=== PATIENT | female | born 1990 | race Caucasian/White ===

== ENCOUNTER 2016-12-30 12:11 | Emergency (ER) | payer OTHER ==
--- NOTE | 2016-12-30 13:56 | ED CLINICAL REPORT ---
Clinical Report - Physicians/Mid Levels [facility] [address] [place] [address] 12/30/2016 12:13 Patient: PETER VARMA Time Seen: 12:33 Dec 30 2016. Arrived- By private vehicle. Historian- patient. HISTORY OF PRESENT ILLNESS Chief Complaint: Fatigue, diarrhea. This started just prior to arrival and is still present. The patient has had fatigue and weakness. (Over the last 5 days patient reports diarrhea and nausea, decreased appetite. Reports mild cough. Denies fevers or chills. Denies any sick contacts. Last nausea period was about 2 weeks ago. Patient with IUD, has irregular menses.). REVIEW OF SYSTEMS No fever, sore throat, difficulty breathing, chest pain or nausea. No diarrhea, skin rash, back pain, headache or blackouts. No double vision. No difficulty with ambulation. All systems otherwise negative, except as recorded above. PAST HISTORY Problems: None. Additional Surgeries: None. Medications: None. Allergies: No Known Drug Allergy. SOCIAL HISTORY Current every day smoker. Alcohol use. History of drug use: marijuana. PHYSICAL EXAM Appearance: Alert. No acute distress. No apparent distress. ENT: Nose normal. Pharynx normal. CVS: Normal heart rate and rhythm. Pulses normal. Respiratory: No respiratory distress. Breath sounds normal. No accessory muscle use. Skin: Skin warm. Normal skin color. Neuro: Oriented X 3. LABS, X-RAYS, AND EKG Laboratory Tests: UA-Culture if indicated: (SHANE: 12/30/2016 10:40) ( MsgRcvd 12/30/2016 12:59) Final results Test Result Flag Units (Reference) URINE COLOR YELLOW URINE APPEARANCE CLEAR URINE GLUCOSE NEGATIVE (NEGATIVE) URINE BILIRUBIN NEGATIVE (NEGATIVE) URINE KETONE NEGATIVE (NEGATIVE) URINE SPECIFIC GRAVITY 1.010 (1.010-1.030) URINE PH 6.0 (5.0-8.0) URINE PROTEIN NEGATIVE (NEGATIVE) URINE UROBILINOGEN 0.2 EU/dL (0.2-1.0) URINE NITRITE NEGATIVE (NEGATIVE) URINE BLOOD TRACE-INTACT (NEGATIVE) URINE LEUK ESTERASE NEGATIVE (NEGATIVE) URINE RBC NONE SEEN rbc/hpf (0-1) URINE WBC NONE SEEN wbc/hpf (0-1) URINE EPITHELIAL CELLS RARE EPI/hpf (0-5) URINE BACTERIA NONE SEEN (NONE SEEN) URINE COMMENT CULT NOT INDICATED URINE CULTURES ARE SET-UP BASED ON THE FOLLOWING CRITERIA:POSITIVE NITRITEPOSITIVE LEUKOCYTE ESTERASEGREATER THAN 10 WHITE BLOOD CELLSMODERATE (2+) OR GREATER BACTERIA Urine: (SHANE: 12/30/2016 12:40) ( [facility] 12/30/2016 13:27) Final results Test Result Flag Units (Reference) URINE NEGATIVE CBC w Diff: (SHANE: 12/30/2016 13:05) ( [facility] 12/30/2016 13:18) Final results Test Result Flag Units (Reference) WHITE BLOOD COUNT 5.9 K/uL (4.5-11.5) RED BLOOD COUNT 5.08 M/uL (4.00-5.20) HEMOGLOBIN 15.1 gm/dL (12.0-16.0) HEMATOCRIT 45.3 % (36.0-46.0) MEAN CELL VOLUME 89 fL (80-100) MEAN CORPUSCULAR HGB 30 pg (26-34) MEAN CORPUSCULAR HGB CONC 33 g/dL (31-37) RED CELL DISTRIBUTION WIDTH 12.7 % (11.6-14.8) PLATELET COUNT 293 K/uL (150-400) NEUTROPHIL % 60.0 % (50-75) LYMPH % 25.9 % (25-40) MONO % 13.2 % (3-14) EOSINOPHIL % 0.5 % (0-4) BASOPHIL % 0.4 % (0-2) CMP: (SHANE: 12/30/2016 13:05) ( [facility] 12/30/2016 13:53) Final results Test Result Flag Units (Reference) GLUCOSE 85 mg/dL (70-110) BUN 9 mg/dL (7-18) CREATININE 0.6 mg/dL (0.6-1.3) Estimated GFR >60 mL/min Estimated GFR- >60 mL/min Note: Persistent reduction over 3 months in eGFR<60 mL/min/1.73 m2 defines CKD. Patients with eGFR values>=60 mL/min/1.73 m2 may also have CKD if evidence ofpersistent proteinuria. Additional information may be foundat www.kidney.org. SODIUM 140 mmol/L (136-145) POTASSIUM 4.1 mmol/L (3.5-5.1) CHLORIDE 105 mmol/L (98-107) CARBON DIOXIDE 29 mmol/L (21-32) CALCIUM 9.0 mg/dL (8.5-10.1) TOTAL PROTEIN 8.1 g/dL (6.4-8.2) ALBUMIN 4.1 g/dL (3.3-5.0) BILIRUBIN, TOTAL 0.3 mg/dL (0.0-1.0) ALKALINE PHOSPHATASE 64 U/L (46-116) AST (SGOT) 20 U/L (15-37) ALT (SGPT) 26 U/L (12-78) . PROGRESS AND PROCEDURES Course of Care: Patient afebrile in no distress in the emergency department, negative exam, no obvious systemic symptoms in the ER. Negative HEENT. Lung exam negative. Labs as above and are unremarkable. Patient given IV hydration and Zofran emergency department, likely viral in nature to follow up outpatient as needed. 12/30/2016 13:52 BP: 120/69. HR: 80. RR: 14. O2 saturation: 100%. Temp: 97.8 F. Pain level now: 0/10. Patient is stable. Patient/family counseled. Disposition: Discharged. CLINICAL IMPRESSION Acute viral syndrome INSTRUCTIONS (Address: [address] [place] [address] [place] [address] ). Prescription Medications: Zofran (orally disintegrating tablets) 4 mg: take 1 orally every 6 hours as needed for nausea. Dispense ten (10). Follow-up: Follow up with your doctor in three days. (Electronically signed by Tracy Tang P.A.-C 12/30/2016 14:03)
--- NOTE | 2016-12-30 13:56 | ED NURSING NOTES ---
Clinical Report - Nurses [facility] [place] [address] [address] [place] [address] 12/30/2016 12:13 [id number] Triage time 12:27 Dec 30 2016. Acuity: LEVEL 3. Chief Complaint: BODY ACHES and FATIGUE. 12:33 12/30/16. ( Pt states she feels tired and "dehydrated." Pt states she threw up last Saturday, and nauseous throughout the week. Pt reports diarrhea approx 5x/day for the last 4 days. Pt reports eating 1x a day but no change in drinking fluids.). SEPSIS SCREEN: Sepsis Screen: negative. Negative (no infection suspected/documented). [place] COMA SCORE: [place] Coma Scale: 15- eyes open spontaneously (4); best verbal response- oriented x 4 (5); best motor response- obeys commands (6). --12:33 AliM 12:23 12/30/16. BP: 121/75 taken on the left arm, while sitting. HR: 86. RR: 14 (regular and unlabored). O2 saturation: 100% on room air. Temp: 97.7 F. Pain level now: 0/10. --12:33 AliM. Weight: 53 kg stated. Height/Length: 64 inches. BMI: 20.1. --12:31 AliM. Medications None. --12:29 AliM. Allergies No Known Drug Allergy. --12:29 AliM. History Arrived by private vehicle. Historian: patient. Primary physician (None). Onset. (Dec 25 2016). She has had fatigue, a headache and diarrhea. No chills or abdominal pain. Treatment [employer]: (Pepto 10:00 today. Motrin yesterday). PAST MEDICAL HX: Immunizations: up-to-date. Last normal menstrual period was 2 weeks ago- 2 weeks ago. SOCIAL HX: Light tobacco smoker. Occasional alcohol use. History of occasional drug use: marijuana. No infectious disease exposure. No known contact with a sick individual. ABUSE ASSESSMENT: No report of abuse. FALL RISK ASSESSMENT: Fall risk assessment completed. No fall risk identified. NUTRITIONAL RISK ASSESSMENT: The nutritional risk assessment revealed no deficiencies. FUNCTIONAL ASSESSMENT: Functional assessment: no impairments noted. LEARNING NEEDS ASSESSMENT: The learning needs assessment revealed no barriers. SKIN INTEGRITY ASSESSMENT: Skin integrity risk assessment completed. No skin integrity risk identified. --12:33 AliM. PROBLEMS: None. --12:30 AliM. ADDITIONAL SURGERIES: None. --12:30 AliM. Interventions ID band on patient. To treatment room. --12:33 AliM. PHYSICAL ASSESSMENT Ambulatory to room. GENERAL / NEURO / PSYCH: Alert. Oriented X 4. Appears in no acute distress. HEENT: Mucous membranes are pink. RESPIRATORY: Respirations not labored. Chest nontender. Breath sounds within normal limits. CVS: Capillary refill less than 2 seconds. GI / : Abdomen soft and nontender and normal bowel sounds. SKIN: Skin intact. Skin is warm and dry. Normal skin turgor. --12:34 AliM. NURSING PROGRESS NOTES 12:35 12/30/16. Patient gowned. Head of bed elevated. Reassurance given. Two patient identifiers checked. Call light placed in reach. Side rails up x 1. Bed placed in lowest position. Brakes of bed on. Patient ready for evaluation- chart flagged and ED physician notified. --12:35 AliM 12:59 12/30/2016 Site #1 started via IV in the right antecubital space with an 20g angiocath, with aseptic technique and good blood return; one attempt. Blood drawn: rainbow set. Labeled in the presence of the patient and sent to the lab. Saline lock flushed with 10 mL saline. --13:09 AliM 13:01 12/30/2016 Started bag #1 1000 mL IV Fluids IV NS (Saline); at 999 mL/hr over 1 hour(s) via site #1 via IV pump. Allergies verified and confirmed 5 rights. IV patency established. IV site checked: no pain, redness, or swelling. IV flushed thoroughly pre- and post-medication administration. --13:12 AliM 13:02 12/30/2016 Zofran (Ondansetron HCl) IVP 8 mg given over 2 minute(s) via site #1. Allergies verified and confirmed 5 rights. IV patency established. IV site checked: no pain, redness, or swelling. IV flushed thoroughly pre- and post-medication administration. --13:12 AliM 12:40. Patient ID band checked for patient name and birthdate: patient confirmed. Instructions provided to collect clean catch urine and patient verbalized understanding. Clean catch urine collected with return of yellow-colored clear urine; odor is normal; sample sent to lab for urinalysis and culture. Specimen labeled in the presence of the patient. --13:13 Livan Cagle R.N. 13:54 12/30/16. Reassurance given. Reassessment after fluids administered. She reports no complaints, she is calm and she has had no adverse reaction. Overall patient status is the same- she states feels the same. Call light placed in reach. Side rails up x 1. Bed placed in lowest position. Brakes of bed on. --13:54 AliM 13:52 12/30/16. BP: 120/69 taken on the left arm, manually, while lying. HR: 80. RR: 14 (regular and unlabored). O2 saturation: 100% on room air. Temp: 97.8 F (oral). Pain level now: 0/10. --13:54 AliM. DISPOSITION / DISCHARGE 13:25 12/30/2016 Zofran IVP Response: pain is improving. Symptoms have improved the patient feels better. --14:26 AliM 14:01 12/30/2016 IV Fluids IV NS Discontinued: bag #1 infused upon discharge. Total amount infused: 1000 mL. IV patency established. IV site checked: no pain, redness, or swelling. IV flushed thoroughly. --14:25 AliM 14:19 12/30/2016 Site #1 removed upon discharge. Catheter intact. Manual pressure and bandage applied. --14:24 AliM 14:27 12/30/16. Condition at departure: improved and stable. ( Pt states she feels "a little better."). No learning barriers present. Discharge instructions provided and reviewed with the patient. Reviewed medication(s) side effects, precautions, dosing and course information. Prescription(s) given to the patient. Treatments reviewed. Patient verbalized understanding. Written instructions provided in Kenyan. ( Taught pt to take Tylenol/Ibuprofen as needed, drink fluids as tolerated, rest.). The patient was discharged home and accompanied by parent. She left the Emergency Department ambulatory and via private vehicle. Patient driving. FALL RISK ASSESSMENT: Fall risk assessment completed. No fall risk identified. --14:27 Reginald 14:22 12/30/16. BP: 115/65 taken on the left arm, manually, while lying. HR: 77. RR: 14 (regular and unlabored). O2 saturation: 99% on room air. Temp: 98.2 F (oral). Pain level now: 0/10. --14:27 Reginald Departure time: 14:Dec 30 2016. --14:27 Reginald. Locked/Released at 12/30/2016 15:31 by Reginald,
--- NOTE | 2016-12-30 13:56 | ED CLINICAL REPORT ---
Clinical Report - Physicians/Mid Levels [facility] [address] [place] [address] 12/30/2016 12:13 Patient: PETER VARMA Time Seen: 12:33 Dec 30 2016. Arrived- By private vehicle. Historian- patient. HISTORY OF PRESENT ILLNESS Chief Complaint: Fatigue, diarrhea. This started just prior to arrival and is still present. The patient has had fatigue and weakness. (Over the last 5 days patient reports diarrhea and nausea, decreased appetite. Reports mild cough. Denies fevers or chills. Denies any sick contacts. Last nausea period was about 2 weeks ago. Patient with IUD, has irregular menses.). REVIEW OF SYSTEMS No fever, sore throat, difficulty breathing, chest pain or nausea. No diarrhea, skin rash, back pain, headache or blackouts. No double vision. No difficulty with ambulation. All systems otherwise negative, except as recorded above. PAST HISTORY Problems: None. Additional Surgeries: None. Medications: None. Allergies: No Known Drug Allergy. SOCIAL HISTORY Current every day smoker. Alcohol use. History of drug use: marijuana. PHYSICAL EXAM Appearance: Alert. No acute distress. No apparent distress. ENT: Nose normal. Pharynx normal. CVS: Normal heart rate and rhythm. Pulses normal. Respiratory: No respiratory distress. Breath sounds normal. No accessory muscle use. Skin: Skin warm. Normal skin color. Neuro: Oriented X 3. LABS, X-RAYS, AND EKG Laboratory Tests: UA-Culture if indicated: (SHANE: 12/30/2016 10:40) ( MsgRcvd 12/30/2016 12:59) Final results Test Result Flag Units (Reference) URINE COLOR YELLOW URINE APPEARANCE CLEAR URINE GLUCOSE NEGATIVE (NEGATIVE) URINE BILIRUBIN NEGATIVE (NEGATIVE) URINE KETONE NEGATIVE (NEGATIVE) URINE SPECIFIC GRAVITY 1.010 (1.010-1.030) URINE PH 6.0 (5.0-8.0) URINE PROTEIN NEGATIVE (NEGATIVE) URINE UROBILINOGEN 0.2 EU/dL (0.2-1.0) URINE NITRITE NEGATIVE (NEGATIVE) URINE BLOOD TRACE-INTACT (NEGATIVE) URINE LEUK ESTERASE NEGATIVE (NEGATIVE) URINE RBC NONE SEEN rbc/hpf (0-1) URINE WBC NONE SEEN wbc/hpf (0-1) URINE EPITHELIAL CELLS RARE EPI/hpf (0-5) URINE BACTERIA NONE SEEN (NONE SEEN) URINE COMMENT CULT NOT INDICATED URINE CULTURES ARE SET-UP BASED ON THE FOLLOWING CRITERIA:POSITIVE NITRITEPOSITIVE LEUKOCYTE ESTERASEGREATER THAN 10 WHITE BLOOD CELLSMODERATE (2+) OR GREATER BACTERIA Urine: (SHANE: 12/30/2016 12:40) ( [facility] 12/30/2016 13:27) Final results Test Result Flag Units (Reference) URINE NEGATIVE CBC w Diff: (SHANE: 12/30/2016 13:05) ( [facility] 12/30/2016 13:18) Final results Test Result Flag Units (Reference) WHITE BLOOD COUNT 5.9 K/uL (4.5-11.5) RED BLOOD COUNT 5.08 M/uL (4.00-5.20) HEMOGLOBIN 15.1 gm/dL (12.0-16.0) HEMATOCRIT 45.3 % (36.0-46.0) MEAN CELL VOLUME 89 fL (80-100) MEAN CORPUSCULAR HGB 30 pg (26-34) MEAN CORPUSCULAR HGB CONC 33 g/dL (31-37) RED CELL DISTRIBUTION WIDTH 12.7 % (11.6-14.8) PLATELET COUNT 293 K/uL (150-400) NEUTROPHIL % 60.0 % (50-75) LYMPH % 25.9 % (25-40) MONO % 13.2 % (3-14) EOSINOPHIL % 0.5 % (0-4) BASOPHIL % 0.4 % (0-2) CMP: (SHANE: 12/30/2016 13:05) ( [facility] 12/30/2016 13:53) Final results Test Result Flag Units (Reference) GLUCOSE 85 mg/dL (70-110) BUN 9 mg/dL (7-18) CREATININE 0.6 mg/dL (0.6-1.3) Estimated GFR >60 mL/min Estimated GFR- >60 mL/min Note: Persistent reduction over 3 months in eGFR<60 mL/min/1.73 m2 defines CKD. Patients with eGFR values>=60 mL/min/1.73 m2 may also have CKD if evidence ofpersistent proteinuria. Additional information may be foundat www.kidney.org. SODIUM 140 mmol/L (136-145) POTASSIUM 4.1 mmol/L (3.5-5.1) CHLORIDE 105 mmol/L (98-107) CARBON DIOXIDE 29 mmol/L (21-32) CALCIUM 9.0 mg/dL (8.5-10.1) TOTAL PROTEIN 8.1 g/dL (6.4-8.2) ALBUMIN 4.1 g/dL (3.3-5.0) BILIRUBIN, TOTAL 0.3 mg/dL (0.0-1.0) ALKALINE PHOSPHATASE 64 U/L (46-116) AST (SGOT) 20 U/L (15-37) ALT (SGPT) 26 U/L (12-78) . PROGRESS AND PROCEDURES Course of Care: Patient afebrile in no distress in the emergency department, negative exam, no obvious systemic symptoms in the ER. Negative HEENT. Lung exam negative. Labs as above and are unremarkable. Patient given IV hydration and Zofran emergency department, likely viral in nature to follow up outpatient as needed. 12/30/2016 13:52 BP: 120/69. HR: 80. RR: 14. O2 saturation: 100%. Temp: 97.8 F. Pain level now: 0/10. Patient is stable. Patient/family counseled. Disposition: Discharged. CLINICAL IMPRESSION Acute viral syndrome INSTRUCTIONS (Address: [address] [place] [address] [place] [address] ). Prescription Medications: Zofran (orally disintegrating tablets) 4 mg: take 1 orally every 6 hours as needed for nausea. Dispense ten (10). Follow-up: Follow up with your doctor in three days. (Electronically signed by Tracy Tang P.A.-C 12/30/2016 14:03)
--- NOTE | 2016-12-30 13:56 | ED ORDER SUMMARY ---
..... Patient: PETER VARMA OrderSheet [facility] VisitID: [id number] [place] [address] 26y, F Registration Date/Time: 12/30/2016 ORDER SHEET Weight: 53.0 kg (stated) Allergies: No Known Drug Allergy GENERAL ORDERS: CBC w Diff Urgent (12:44 12/30/2016 EKoroleva P.A.-C) (Ack 12:46 OSnell) (13:09 AMcKenna) CMP Urgent (12:44 12/30/2016 EKoroleva P.A.-C) (Ack 12:46 OSnell) (13:10 AMcKenna) UA-Culture if indicated Urgent (12:44 12/30/2016 EKoroleva P.A.-C) (Ack 12:47 OSnell) (13:12 AMcKenna) Urine Urgent (12:44 12/30/2016 EKoroleva P.A.-C) (Ack 12:47 OSnell) (13:12 AMcKenna) MEDICATION ORDERS: IV FLUIDS: IV NS : initial bolus 1000 mL (1000 mL/hr), then 1000 mL/hr for X1 (NOW); Edward (12:44 12/30/2016 EKoroleva P.A.-C) (Ack 12:50 AMcKenna) (13:12 AMcKenna) Zofran IV 8 mg (NOW) (12:44 12/30/2016 EKoroleva P.A.-C) (Ack 12:50 AMcKenna) (13:12 AMcKenna) ORDER SHEET NOTES: [Electronically signed by Tracy Tang P.A.-C (14:03 12/30/2016)] [Electronically signed by Lara Bliss (15:31 12/30/2016)] [Electronically locked/signed by Lara Bliss (15:31 12/30/2016)]
--- NOTE | 2016-12-30 13:56 | ED ORDER SUMMARY ---
..... Patient: PETER VARMA OrderSheet [facility] VisitID: [id number] [place] [address] 26y, F Registration Date/Time: 12/30/2016 ORDER SHEET Weight: 53.0 kg (stated) Allergies: No Known Drug Allergy GENERAL ORDERS: CBC w Diff Urgent (12:44 12/30/2016 EKoroleva P.A.-C) (Ack 12:46 OSnell) (13:09 AMcKenna) CMP Urgent (12:44 12/30/2016 EKoroleva P.A.-C) (Ack 12:46 OSnell) (13:10 AMcKenna) UA-Culture if indicated Urgent (12:44 12/30/2016 EKoroleva P.A.-C) (Ack 12:47 OSnell) (13:12 AMcKenna) Urine Urgent (12:44 12/30/2016 EKoroleva P.A.-C) (Ack 12:47 OSnell) (13:12 AMcKenna) MEDICATION ORDERS: IV FLUIDS: IV NS : initial bolus 1000 mL (1000 mL/hr), then 1000 mL/hr for X1 (NOW); Edward (12:44 12/30/2016 EKoroleva P.A.-C) (Ack 12:50 AMcKenna) (13:12 AMcKenna) Zofran IV 8 mg (NOW) (12:44 12/30/2016 EKoroleva P.A.-C) (Ack 12:50 AMcKenna) (13:12 AMcKenna) ORDER SHEET NOTES: [Electronically signed by Tracy Tang P.A.-C (14:03 12/30/2016)] [Electronically signed by Lara Bliss (15:31 12/30/2016)] [Electronically locked/signed by Lara Bliss (15:31 12/30/2016)]
--- NOTE | 2016-12-30 15:31 | ED MAR SUMMARY ---
..... Medication Administration Record [facility] [address] [place] [address] Patient: PETER VARMA Visit ID: [id number] 26y, F Weight: 53.0 kg Height/Length: 64 in BMI: 20.1 ALLERGIES: No Known Drug Allergy Start 13:12/30/2016 AliM,, Stop 14:12/30/2016 AliM, Medication Administered: IV NS (SALINE), Dose: IV Fluids over 1 hour(s), Rate: 999 mL/hr, Dispensed: 1000 mL bag, Site: #1 right AC. Medication Ordered: IV NS : initial bolus 1000 mL (1000 mL/hr), then 1000 mL/hr for X1 (NOW); Edward. Given 13:02 12/30/2016 Ali, Medication Administered: ZOFRAN [IVP] (ONDANSETRON HCL), Dose: 8 mg IVP over 2 minute(s), Site: #1 right AC. Medication Ordered: Zofran IV 8 mg (NOW).
--- NOTE | 2016-12-30 15:31 | ED DISCHARGE INSTRUCTIONS ---
Patient: PETER VARMA General Instructions [facility] VisitID: [id number] [place] [address] 26y, F Registration Date/Time: 12/30/2016 Acute viral syndrome INSTRUCTIONS (Address: [place] [address] ). Prescription Medications: Zofran (orally disintegrating tablets) 4 mg: take 1 orally every 6 hours as needed for nausea. Dispense ten (10). Follow-up: Follow up with your doctor in three days. ADDITIONAL INFORMATION Viral Syndrome (Adult) A viral illness may cause a number of symptoms. The symptoms depend on the part of the body that the virus affects. If it settles in the nose, throat, and lungs, it may cause cough, sore throat, congestion, and sometimes headache. If it settles in the stomach and intestinal tract, it may cause vomiting and diarrhea. Sometimes it causes vague symptoms like "aching all over," feeling tired, loss of appetite, or fever. A viral illness usually lasts1 to 2 weeks, but sometimes it lasts longer. In some cases, a more serious infection can look like a viral syndrome in the first few days of the illness. You may need anotherexam and additional teststo know the difference.Watch for the warning signs listed below. Home care Follow these guidelines for taking care of yourself at home: If symptoms are severe, rest at home for the first 2 to 3 days. Stay away from cigarette smoke - both your smoke and the smoke from others. You may useacetaminophen or ibuprofen for fever, muscle aching, and headache, unless another medicine was prescribed for this.If you have chronic liver or kidney disease or ever had a stomach ulcer or GI bleeding, talk with your doctor before using these medicinesNo one who is younger than 18 and ill with a fever should take aspirin. It may cause severe liver damage. Your appetite may be poor, so a light diet is fine. Avoid dehydration by drinking 8 to 12 8-ounce glasses of fluids each day. This may include water; orange juice; lemonade; apple, grape, and cranberry juice; clear fruit drinks; electrolyte replacement and sports drinks; and decaffeinated teas and coffee. If you have been diagnosed with a kidney disease, ask your doctor how much and what types of fluids you should drink to prevent dehydration. If you have kidney disease, drinking too much fluid can cause it build up in the your body and be dangerous to your health. Tazc-iwu-chcpsqe remedies won't shorten the length of the illness but may be helpful forcough, sore throat; and nasal and sinus congestion. Don't use decongestants if you have high blood pressure. Follow-up care Follow up with your health care provider if you do not improve over the next week. When to seek medical care Get prompt medical attention if any of these occur: Cough with lots of colored sputum (mucus) or blood in your sputum Chest pain, shortness of breath, wheezing, or difficulty breathing Severe headache; face, neck, or ear pain Severe, constant pain in the lower right side of your belly (abdominal) Continued vomiting (cant keep liquids down) Frequent diarrhea (more than 5 times a day); blood (red or black color) or mucus in diarrhea Feeling weak, dizzy, or like you are going to faint Extreme thirst Fever of 100.4 F (38 C) oral or higher, not better with fever medication Convulsion You have been given the following additional information: Viral Syndrome (Adult) (Electronically signed by Tracy Tang P.A.-C 12/30/2016 14:03)
--- NOTE | 2016-12-30 15:31 | ED DISCHARGE INSTRUCTIONS ---
Patient: PETER VARMA General Instructions [facility] VisitID: [id number] [place] [address] 26y, F Registration Date/Time: 12/30/2016 Acute viral syndrome INSTRUCTIONS (Address: [place] [address] ). Prescription Medications: Zofran (orally disintegrating tablets) 4 mg: take 1 orally every 6 hours as needed for nausea. Dispense ten (10). Follow-up: Follow up with your doctor in three days. ADDITIONAL INFORMATION Viral Syndrome (Adult) A viral illness may cause a number of symptoms. The symptoms depend on the part of the body that the virus affects. If it settles in the nose, throat, and lungs, it may cause cough, sore throat, congestion, and sometimes headache. If it settles in the stomach and intestinal tract, it may cause vomiting and diarrhea. Sometimes it causes vague symptoms like "aching all over," feeling tired, loss of appetite, or fever. A viral illness usually lasts1 to 2 weeks, but sometimes it lasts longer. In some cases, a more serious infection can look like a viral syndrome in the first few days of the illness. You may need anotherexam and additional teststo know the difference.Watch for the warning signs listed below. Home care Follow these guidelines for taking care of yourself at home: If symptoms are severe, rest at home for the first 2 to 3 days. Stay away from cigarette smoke - both your smoke and the smoke from others. You may useacetaminophen or ibuprofen for fever, muscle aching, and headache, unless another medicine was prescribed for this.If you have chronic liver or kidney disease or ever had a stomach ulcer or GI bleeding, talk with your doctor before using these medicinesNo one who is younger than 18 and ill with a fever should take aspirin. It may cause severe liver damage. Your appetite may be poor, so a light diet is fine. Avoid dehydration by drinking 8 to 12 8-ounce glasses of fluids each day. This may include water; orange juice; lemonade; apple, grape, and cranberry juice; clear fruit drinks; electrolyte replacement and sports drinks; and decaffeinated teas and coffee. If you have been diagnosed with a kidney disease, ask your doctor how much and what types of fluids you should drink to prevent dehydration. If you have kidney disease, drinking too much fluid can cause it build up in the your body and be dangerous to your health. Knka-shv-jhttnxq remedies won't shorten the length of the illness but may be helpful forcough, sore throat; and nasal and sinus congestion. Don't use decongestants if you have high blood pressure. Follow-up care Follow up with your health care provider if you do not improve over the next week. When to seek medical care Get prompt medical attention if any of these occur: Cough with lots of colored sputum (mucus) or blood in your sputum Chest pain, shortness of breath, wheezing, or difficulty breathing Severe headache; face, neck, or ear pain Severe, constant pain in the lower right side of your belly (abdominal) Continued vomiting (cant keep liquids down) Frequent diarrhea (more than 5 times a day); blood (red or black color) or mucus in diarrhea Feeling weak, dizzy, or like you are going to faint Extreme thirst Fever of 100.4 F (38 C) oral or higher, not better with fever medication Convulsion You have been given the following additional information: Viral Syndrome (Adult) (Electronically signed by Tracy Tang P.A.-C 12/30/2016 14:03)
--- NOTE | 2016-12-30 15:31 | ED MED RECONCILIATION SUMMARY ---
Patient: PETER VARMA Medication Reconciliation Report [facility] VisitID: [id number] [place] [address] 26y, F Registration Date/Time: 12/30/2016 Weight: 53.0 kg Height/Length: 64 in. BMI: 20.1 ALLERGIES: No Known Drug Allergy The patient's Home Medications are listed below: NONE. The source(s) of the original Home Medication information: Not obtained. The following Medications were given to the patient in the Emergency Department: IV NS IV Fluids bolus 0, then 999 mL/hr, administered: 12/30/2016 1:01:00 PM Zofran [IVP] IVP 8 mg, administered: 12/30/2016 1:02:00 PM The following Medications were prescribed to the patient: Zofran (orally disintegrating tablets) 4 mg: take 1 orally every 6 hours as needed for nausea. Dispense ten (10). -- Tracy Tang P.A.-C
--- NOTE | 2016-12-30 15:31 | ED MAR SUMMARY ---
..... Medication Administration Record [facility] [address] [place] [address] Patient: PETER VARMA Visit ID: [id number] 26y, F Weight: 53.0 kg Height/Length: 64 in BMI: 20.1 ALLERGIES: No Known Drug Allergy Start 13:12/30/2016 AliM,, Stop 14:12/30/2016 AliM, Medication Administered: IV NS (SALINE), Dose: IV Fluids over 1 hour(s), Rate: 999 mL/hr, Dispensed: 1000 mL bag, Site: #1 right AC. Medication Ordered: IV NS : initial bolus 1000 mL (1000 mL/hr), then 1000 mL/hr for X1 (NOW); Edward. Given 13:02 12/30/2016 Ali, Medication Administered: ZOFRAN [IVP] (ONDANSETRON HCL), Dose: 8 mg IVP over 2 minute(s), Site: #1 right AC. Medication Ordered: Zofran IV 8 mg (NOW).
--- NOTE | 2016-12-30 15:31 | ED MED RECONCILIATION SUMMARY ---
Patient: PETER VARMA Medication Reconciliation Report [facility] VisitID: [id number] [place] [address] 26y, F Registration Date/Time: 12/30/2016 Weight: 53.0 kg Height/Length: 64 in. BMI: 20.1 ALLERGIES: No Known Drug Allergy The patient's Home Medications are listed below: NONE. The source(s) of the original Home Medication information: Not obtained. The following Medications were given to the patient in the Emergency Department: IV NS IV Fluids bolus 0, then 999 mL/hr, administered: 12/30/2016 1:01:00 PM Zofran [IVP] IVP 8 mg, administered: 12/30/2016 1:02:00 PM The following Medications were prescribed to the patient: Zofran (orally disintegrating tablets) 4 mg: take 1 orally every 6 hours as needed for nausea. Dispense ten (10). -- Tracy Tang P.A.-C
== END 2016-12-30 14:15 | disposition home or self-care (01) ==
LOC: ED SRH 12:11
DX: B34.9 Viral infection, unspecified (principal); R53.83 Other fatigue; R19.7 Diarrhea, unspecified; R11.0 Nausea; R05 Cough
CPT/HCPCS: 90004; 90100; 93070; 95059